=== PATIENT | female | born 1985 | race Caucasian/White ===

== ENCOUNTER 2017-07-11 15:30 | Emergency (ER) | payer BC, OTHER ==
[2017-07-11 15:38] VITALS: TEMP 97.7
[2017-07-11] MEDS ORDERED: IBUPROFEN 600 MG TAB PO ONE (15:57)
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
[2017-07-11 17:26] VITALS: BP 142/102; PULSE 88; RESP 16; O2SAT 96
== END 2017-07-11 17:40 | disposition home or self-care (01) ==
DX: S16.1XXA Strain of muscle, fascia and tendon at neck level, initial encounter (principal); S39.012A Strain of muscle, fascia and tendon of lower back, initial encounter; Z87.891 Personal history of nicotine dependence; V43.54XA Car driver injured in collision with van in traffic accident, initial encounter; Y92.410 Unspecified street and highway as the place of occurrence of the external cause; Y99.8 Other external cause status; Y93.89 Activity, other specified

== ENCOUNTER 2018-09-03 11:44 | Emergency (ER) | payer BC, MEDICAID ==
--- NOTE | 2018-09-03 13:14 | EDPHY ---
H & P Stated Complaint: POWERS, syncope Time Seen by Provider: 09/03/18 12:54 HPI/ROS: CHIEF COMPLAINT: Frequent headaches HISTORY OF PRESENT ILLNESS: 32-year-old female presents with a 3 week history of frequent headaches. Onset of right-sided frontal headaches 3 weeks ago, occasionally associated with nausea and photophobia. The headaches are mild to moderate and last from 1-6 hours. Occasionally the headaches wake her up the middle the night. Minimal relief with Tylenol and ibuprofen. No aggravating factors. No recent URI symptoms or trauma. History of infrequent migraine headaches, never this often. Yesterday evening she fell asleep on the couch and woke up at 1:00 a.m., felt dizzy and walked to the bathroom. She then had a witnessed syncopal episode. Unknown if she hit her head. Did not have a POWERS at that time (before/after episode). Today she has a mild headache. Recently, a friend had a stroke and she is concerned about stroke. REVIEW OF SYSTEMS: complete 10 point ROS reviewed and is negative except for the noted elements in the HPI - Personal History Current Tetanus/Diphtheria Vaccine: Yes Current Tetanus Diphtheria and Acellular Pertussis (TDAP): Yes - Medical/Surgical History Hx Asthma: Yes Hx Chronic Respiratory Disease: No Hx Diabetes: No Hx Cardiac Disease: No Hx Renal Disease: No Hx Cirrhosis: No Hx Alcoholism: No Hx HIV/AIDS: No Hx Splenectomy or Spleen Trauma: No Other PMH: anxiety, recent kidney infection, - Family History Significant Family History: No pertinent family hx - Social History Smoking Status: Former smoker Alcohol Use: Occasionally Drug Use: None - Physical Exam Exam: General Appearance: Alert, pleasant Eyes: Pupils equal and round, no conjunctival pallor or injection ENT, Mouth: Mucous membranes moist Neck: Normal inspection Respiratory: Lungs are clear to auscultation Cardiovascular: Regular rate and rhythm Gastrointestinal: Abdomen is soft and nontender Neurological: Alert, oriented x3, cranial nerves II through XII intact, motor 5 /5, sensory intact to light touch, normal gait Skin: Warm and dry Extremities: Normal inspection Psychiatric: Mood and affect normal Constitutional: Initial Vital Signs Temperature (C) 36.6 C 09/03/18 11:53 Heart Rate 99 09/03/18 11:53 Respiratory Rate 16 09/03/18 11:53 Blood Pressure 148/87 H 09/03/18 11:53 O2 Sat (%) 97 09/03/18 11:53 O2 Delivery Mode Room Air Allergies/Adverse Reactions: No Known Allergies Allergy (Verified 07/11/17 15:31) Home Medications: Medication Instructions Recorded Daysee 0.15-0.03-0.01 mg Tab 07/11/17 Effexor Xr 07/11/17 VYVANSE 07/11/17 Lamictal 09/03/18 Terazosin HCl 09/03/18 Medical Decision Making - Diagnostics EKG Interpretation: EKG interpreted me reveals normal sinus rhythm, rate 85, no ST or T segment changes. Interpretation: Normal EKG Imaging Results: Imaging Impressions Head CT 09/03/18 13:31 Impression: There is no acute intracranial abnormality identified on this unenhanced CT evaluation. If there is further clinical concern regarding the patient's symptoms, MR imaging is suggested, if not otherwise contraindicated. Findings were conveyed to RUBI MARIANO MD at 14:01, on 09/03/2018 using a secure [employer] text messaging system. Imaging: Discussed imaging studies w/ call center assistant Radiologist, I viewed and interpreted images myself ED Course/Re-evaluation: Assessment: Frequent headaches, neurologic exam is normal. The headaches are mild to moderate and I do not suspect subarachnoid hemorrhage or meningitis. Given new onset of frequent POWERS's, will obtain CT head. Also had a syncopal episode, that does not appear to be related to POWERS's. Stat EKG reveals no evidence of ischemia or dysrhythmia and laboratory studies are normal. CT head unremarkable, results d/w pt. Quite relieved with normal labs/CT. Toradol IV given. Will f/u neuro. Differential Diagnosis: Headache including but not limited to subarachnoid hemorrhage, migraine headache , tension headache and infectious causes such as meningitis, pharyngitis and sinusitis. - Data Points Laboratory Results: Laboratory Results 09/03/18 12:10 09/03/18 12:10 09/03/18 09/03/18 09/03/18 12:10 12:10 12:10 WBC 6.89 10^3/uL 10^3/uL (3.80-9.50) RBC 4.36 10^6/uL 10^6/uL (4.18-5.33) Hgb 13.6 g/dL g/dL (12.6-16.3) Hct 39.6 % % (38.0-47.0) MCV 90.8 fL fL (81.5-99.8) MCH 31.2 pg pg (27.9-34.1) MCHC 34.3 g/dL g/dL (32.4-36.7) RDW 12.2 % % (11.5-15.2) Plt Count 343 10^3/uL 10^3/uL (150-400) MPV 9.1 fL fL (8.7-11.7) Neut % (Auto) 65.3 % % (39.3-74.2) Lymph % (Auto) 25.4 % % (15.0-45.0) [place] % (Auto) 7.3 % % (4.5-13.0) Eos % (Auto) 1.0 % % (0.6-7.6) Baso % (Auto) 0.7 % % (0.3-1.7) Nucleat RBC Rel Count 0.0 % % (0.0-0.2) Absolute Neuts (auto) 4.50 10^3/uL 10^3/uL (1.70-6.50) Absolute Lymphs (auto) 1.75 10^3/uL 10^3/uL (1.00-3.00) Absolute Monos (auto) 0.50 10^3/uL 10^3/uL (0.30-0.80) Absolute Eos (auto) 0.07 10^3/uL 10^3/uL (0.03-0.40) Absolute Basos (auto) 0.05 10^3/uL 10^3/uL (0.02-0.10) Absolute Nucleated RBC 0.00 10^3/uL 10^3/uL (0-0.01) Immature Gran % 0.3 % % (0.0-1.1) Immature Gran # 0.02 10^3/uL 10^3/uL (0.00-0.10) Sodium 137 mEq/L mEq/L (135-145) Potassium 3.8 mEq/L mEq/L (3.5-5.2) Chloride 102 mEq/L mEq/L (97-110) Carbon Dioxide 26 mEq/l mEq/l (22-31) Anion Gap 9 mEq/L mEq/L (6-14) BUN 16 mg/dL mg/dL (7-23) Creatinine 0.9 mg/dL mg/dL (0.6-1.0) Estimated GFR > 60 Glucose 93 mg/dL mg/dL (70-100) Calcium 9.3 mg/dL mg/dL (8.5-10.4) Beta HCG, Qual NEGATIVE Medications Given: Discontinued Medications Ketorolac Tromethamine (Toradol) 30 mg IVP EDNOW ONE Stop: 09/03/18 14:29 Last Admin: 09/03/18 14:32 Dose: 30 mg Departure - Departure Disposition: Home, Routine, Self-Care Clinical Impression: Headache Qualifiers: Headache type: tension-type Headache chronicity pattern: acute headache Intractability: not intractable Qualified Code(s): G44.209 - Tension-type headache, unspecified, not intractable Condition: Good Instructions: Acute Headache (ED) Additional Instructions: Return for worsening symptoms or any concerns. Ibuprofen 600 mg 3 times daily as needed for headache. Referrals: Andrew Garcia MD [Medical Doctor] - As per Instructions (Call to make an appointment. ) Stand Alone Forms: School Excuse
[2018-09-03 13:19] LABS: PLATELET COUNT 343 10^3/uL (150-400)
[2018-09-03 14:08] VITALS: BP 137/93
[2018-09-03] MEDS ORDERED: KETOROLAC 15 MG/1 ML SDV IVP ONE (14:28)
--- NOTE | 2018-09-03 15:19 | CPEKG ---
Test Reason : OPEN Blood Pressure : / mmHG Vent. Rate : 085 BPM Atrial Rate : 086 BPM P-R Int : 166 ms QRS Dur : 079 ms QT Int : 367 ms P-R-T Axes : 078 044 054 degrees QTc Int : 437 ms Sinus rhythm Confirmed by Chino Magallon ([id number]) on 09/03/2018 3:19:08 PM Referred By: PHYSICIAN ED Confirmed By:Chino Magallon
== END 2018-09-03 14:36 | disposition home or self-care (01) ==
DX: G44.209 Tension-type headache, unspecified, not intractable (principal); R55 Syncope and collapse; Z87.891 Personal history of nicotine dependence
CPT/HCPCS: 96374; J1885